=== PATIENT | male | born 1985 | race Two or more races ===

== ENCOUNTER 2021-03-19 02:50 | Emergency (ER) | payer SELFPAY ==
[~2021-03-19] VITALS: Ht 177.8 cm; Wt 83.9 kg
--- NOTE | 2021-03-19 03:17 | NUR ---
PT AAOX4. BIBSELF C/O BACK OF HEAD PAIN S/P POSSIBLE INJURY X2 HRS [employer]. PT STATED HE WAS IN [place] 2 HRS AGO, TOOK THE BUS TO [facility] TO HAVE HIS HEAD CHECKED OUT. -LOC, -TRAUMA. VSS. NO NEURO DEFICIT, PERRLA. AWAITING ER MD FOR EVAL AND ORDERS.
[2021-03-19 04:02] VITALS: BP 118/65
--- NOTE | 2021-03-19 04:38 | NUR ---
UPON DISCHARGE. PT NOT IN BED. ER MD AWARE.
== END 2021-03-19 04:39 | disposition home or self-care (01) ==
LOC: ER 03:02
DX: S09.8XXA Other specified injuries of head, initial encounter (principal); W19.XXXA Unspecified fall, initial encounter; Y93.89 Activity, other specified; Y92.89 Other specified places as the place of occurrence of the external cause; Y99.8 Other external cause status
CPT/HCPCS: 70450-TC